=== PATIENT | female | born 1980 | race Caucasian/White ===

== ENCOUNTER 2018-04-16 12:57 | Inpatient (IN) | payer MEDICARE, MEDICAID ==
[2018-04-16] VITALS (17 sets, daily range): BP systolic 79–128; BP diastolic 39–103
[~2018-04-16] VITALS: Ht 162.6 cm; Wt 55.5 kg
[~2018-04-16 12:57] MED LIST: ATIVAN1 MG PO; DILANTIN100 MG; DILANTIN100 MG PO; DILANTIN30 MG PO; GABAPENTIN600 MG PO; KEPPRA 500 MG500 MG PO; LAMICTAL; LAMICTAL 25 MG25 M1 PO; LAMOTRIGINE100 MG; LAMOTRIGINE100 MG PO; MAG-OX 400 TAB400 M1 PO; NAMENDA; NAMENDA 5 MG TAB5 MG PO; NEURONTIN600 MG PO; NOHOMEMEDICATIONS; NORCO 5-325 TA1 EACH PO
[2018-04-16] MEDS ORDERED: KEPPRA1000 MG PO (13:16)
[2018-04-16] MEDS ORDERED: VIMPAT200 MG PO (13:17)
[2018-04-16] MEDS ORDERED: ZONEGRAN100 MG PO (13:17)
[2018-04-16] MEDS ORDERED: ROPINIROLE HCL0.5 MG PO (13:18)
[2018-04-16] MEDS ORDERED: ZANAFLEX2 MG PO (13:18)
[2018-04-16] MEDS ORDERED: LEXAPRO20 MG PO (13:18)
[2018-04-16] MEDS ORDERED: HYDROXYZINE HCL25 M1 PO (13:19)
[2018-04-16 13:23] LABS: URINE BILIRUBIN NEGATIVE (Negative); URINE BLOOD TRACE (Negative); URINE CLARITY CLEAR; URINE COLOR YELLOW; URINE GLUCOSE-RANDOM TRACE (Negative); URINE KETONES NEGATIVE (Negative); URINE LEUKOCYTES-REFLEX NEGATIVE (Negative); URINE NITRITE-REFLEX NEGATIVE (Negative); URINE PROTEIN TRACE (Negative); URINE SPECIFIC GRAVITY 1.015 (1.005-1.030)
[2018-04-16 13:31] LABS: AMP/METHAMP Negative (Negative); BARBITURATES Negative (Negative); BENZODIAZEPINES POSITIVE (Negative); COCAINE Negative (Negative); METHADONE Negative (Negative); OPIATES Negative (Negative); PCP Negative (Negative); THC POSITIVE (Negative)
[2018-04-16 13:34] LABS: ABSOLUTE LYMPHOCYTES 1.2 thou/uL (0.8-5.3); ABSOLUTE MONOCYTES 0.3 thou/uL (0.0-1.2); ABSOLUTE NEUTROPHILS 5.4 thou/uL (1.6-8.1); BASOPHILS 0.4 %; HEMATOCRIT 33.5 % (37.0-47.0); HEMOGLOBIN 11.1 gm/dL (12.0-15.0); LYMPHOCYTES 17.3 %; MCH 34.3 pg (26.0-34.0); MCHC 33.2 g/dL (28.0-37.0); MCV 103.1 fL (80.0-100.0); MONOCYTES 4.2 %; MPV 8.2 fl. (7.2-11.1); NUCLEATED RBCS 0 /100WBC; PLATELET COUNT* 238 thou/uL (150-400); POLYS 78.1 %; RBC 3.25 mil/uL (4.20-5.00); RDW-CV 13.1 % (10.5-14.5); WBC 6.9 thou/uL (4.0-11.0)
[2018-04-16 13:36] LABS: BE -14.2 mmol/L (-2 to +3); HCO3 13.9 mmol/L (22.0-26.0); PCO2 40.9 mmHg (35.0-45.0)
[2018-04-16 13:37] LABS: PO2 170.7 mmHg (75.0-100.0)
[2018-04-16 13:42] LABS: ANION GAP 12 mmol/L (7-16); APTT 26.8 Seconds (25.0-31.3); BUN 10 mg/dL (7-18); CHLORIDE 108 mmol/L (98-107); CO2 18 mmol/L (21-32); CREATININE 0.9 mg/dL (0.6-1.3); GLUCOSE 208 mg/dL (70-99); INR 1.2; SODIUM 138 mmol/L (136-145)
[2018-04-16 13:43] LABS: POTASSIUM 2.7 mmol/L (3.5-5.1)
[2018-04-16 14:00] LABS: ACETAMINOPHEN 3 ug/mL (10-30); SALICYLATE < 2.8 mg/dL (2.8-20.0)
[2018-04-16 14:01] LABS: ALCOHOL < 10 mg/dL (<10); ALKALINE PHOSPHATASE 61 U/L (46-116); CK-MB MASS 0.5 ng/mL (<0.5-3.6); LIPASE 67 U/L (73-393); NT-PRO BRAIN NAT PEPTIDE 28 pg/mL (<300); SGOT 14 U/L (15-37); SGPT 19 U/L (30-65); TOTAL BILIRUBIN 0.1 mg/dL (<0.1-1.0); TROPONIN-I LEVEL <0.06 ng/mL (<0.06)
--- NOTE | 2018-04-16 15:29 | NUR ---
1440 PATIENT ADMITTED TO ICU PER CART FROM CT WITH ER NURSE. PT ON VENTILATOR. SEE ADMISSION ASSESSMENT
--- NOTE | 2018-04-16 16:18 | NUR ---
SPOKE WITH DR KHAN. MOTLEY FOR ELECTROLYTE PROTOCOL.BMP REPEATED
[2018-04-16 16:24] LABS: CALCIUM 6.8 mg/dL (8.5-10.1); CREATININE 0.8 mg/dL (0.6-1.3)
[2018-04-16 16:25] LABS: BE -8.1 mmol/L (-2 to +3); HCO3 17.6 mmol/L (22.0-26.0); PCO2 36.7 mmHg (35.0-45.0); PO2 97.7 mmHg (75.0-100.0); pH 7.298 (7.340-7.450)
--- NOTE | 2018-04-16 17:59 | NUR ---
LACTATE NOW 2.4. FAMILY WENT HOME
--- NOTE | 2018-04-16 18:12 | NUR ---
PATIENT ADMITTED THIS AFTERNOONA OVERDOSE AND REPIRATORY FAILURE. ELECTROLYTE REPLACEMENT AND REWARMING IN PROGRESS. SPOKE WITH NEPHROLOGY AND PULMONARY. CONSULTS. LACTATE TRENDING DOWN. COMPLETING FLUID BOLUS. SPOUSE AND PARENTS HAVE VISITED.
[2018-04-17] VITALS (24 sets, daily range): BP systolic 86–106; BP diastolic 45–62
[2018-04-17 03:37] LABS: BE -4.3 mmol/L (-2 to +3); HCO3 21.2 mmol/L (22.0-26.0); PCO2 40.6 mmHg (35.0-45.0); pH 7.336 (7.340-7.450)
[2018-04-17 03:39] LABS: PO2 311.6 mmHg (75.0-100.0)
[2018-04-17 03:59] LABS: HEMOGLOBIN 9.5 gm/dL (12.0-15.0); MCH 34.7 pg (26.0-34.0); MCV 101.9 fL (80.0-100.0); MPV 8.2 fl. (7.2-11.1); RBC 2.75 mil/uL (4.20-5.00); WBC 7.8 thou/uL (4.0-11.0)
[2018-04-17 04:17] LABS: ALBUMIN 2.7 g/dL (3.4-5.0); CALCIUM 7.3 mg/dL (8.5-10.1); CREATININE 0.7 mg/dL (0.6-1.3); MAGNESIUM 1.5 mg/dL (1.8-2.4); POTASSIUM 3.4 mmol/L (3.5-5.1); TOTAL BILIRUBIN 0.3 mg/dL (<0.1-1.0); TOTAL PROTEIN 4.4 g/dL (6.4-8.2)
--- NOTE | 2018-04-17 05:47 | NUR ---
PT. PROGRESSING TOWARDS GOALS. VERSED GTT UP TO 7MG/HR. PT. VERY RESTLESS, CONSTANTLY ATTEMPTING TO PULL ET TUBE OUT. BILAT SOFT WRIST RESTRAINTS IN PLACE. FENTANYL GTT AT 50MCG/HR. REMAINS SINUS TACHY ON MONITOR. WILL CONTINUE TO MONITOR.
--- NOTE | 2018-04-17 08:21 | NUR ---
1154 ASSUMED CARE OF PATIENT. PLEASE SEE DOCUMENTED ASSESSMENT. PT ABLE TO NOD HEAD AND FOLLOW COMMANDS
--- NOTE | 2018-04-17 09:20 | NUR ---
DR SAUCEDO TO SEE ATIENT. WILL NOT TRIAL TODAY. INCREASING SEDATION
[2018-04-17 09:52] LABS: MAGNESIUM 2.6 mg/dL (1.8-2.4); POTASSIUM 3.3 mmol/L (3.5-5.1)
--- NOTE | 2018-04-17 10:20 | NUR ---
DR CHILEL TO SEE PATIENT AND TALK WITH SPOUSE
--- NOTE | 2018-04-17 12:39 | EKG ---
[place] [address] ELECTROCARDIOGRAM REPORT Name: CURT CALLAWAY Room: [address] ADM IN M.R.#: [id number] Admission: 04/16/18 Attend Phys: Ct Velasco MD Discharge: Date of : 76 Report #: [id number] THIS REPORT FOR: //name// [facility] ED Test Date: 2018-04-16 Test Time: 13:01:16 Pat Name: CURT CALLAWAY Department: Room: [facility] Gender: F [place]: [place] : 1980 Requested By: Mateus Alexandre Order Number: [id number] MD: Danyel Wilson Measurements Intervals [place] Rate: 115 P: 70 ID: [id number] QRS: 35 QRSD: 95 T: -67 QT: 335 QTc: 464 Interpretive Statements Sinus tachycardia Probable left atrial enlargement RSR' in V1 or V2, right VCD or RVH No previous ECG available for comparison Electronically Signed On 04-17-2018 12:39:35 CDT by Danyel Wilson [email or web address] <ELECTRONICALLY SIGNED> By: Danyel Wilson MD, [facility] 04/17/18 1239 1301 1301 Danyel Wilson MD, [facility] /EPI
[2018-04-17 13:47] LABS: ALBUMIN 2.6 g/dL (3.4-5.0); CALCIUM 7.5 mg/dL (8.5-10.1); CREATININE 0.6 mg/dL (0.6-1.3); PHOSPHORUS* 1.8 mg/dL (2.5-4.9); POTASSIUM 3.3 mmol/L (3.5-5.1)
--- NOTE | 2018-04-17 17:05 | NUR ---
PATIENT MAKING PROGRESS TOWARDS GOALS. INTACT NEUROLOGICALLY CHARTED. VENT WEANING TRIAL IS ORDERED FOR AM. COMFORT MAINTAINED WITH FENTANYL AND VERSED DRIPS. VSS. SPOUSE AND MOTHER HAVE VISITED
[2018-04-18] VITALS (48 sets, daily range): BP systolic 87–112; BP diastolic 43–71
[2018-04-18 03:00] LABS: HEMATOCRIT 25.5 % (37.0-47.0); HEMOGLOBIN 8.6 gm/dL (12.0-15.0); MCH 34.5 pg (26.0-34.0); MCHC 33.6 g/dL (28.0-37.0); MCV 102.6 fL (80.0-100.0); MPV 7.9 fl. (7.2-11.1); RBC 2.48 mil/uL (4.20-5.00); RDW-CV 13.8 % (10.5-14.5); WBC 5.7 thou/uL (4.0-11.0)
[2018-04-18 03:48] LABS: ALBUMIN 2.3 g/dL (3.4-5.0); CALCIUM 7.2 mg/dL (8.5-10.1); CREATININE 0.6 mg/dL (0.6-1.3); POTASSIUM 3.7 mmol/L (3.5-5.1); TOTAL BILIRUBIN 0.4 mg/dL (<0.1-1.0); TOTAL PROTEIN 4.2 g/dL (6.4-8.2)
--- NOTE | 2018-04-18 05:18 | NUR ---
PROGRESSING TOWARD GOALS. PT IS ALERT AND FOLLOWS COMMANDS, ABLE TO NOD/SHAKE HEAD IN RESPONSE TO YES/NO QUESTIONS. TITRATING SEDATION DOWN IN PREPARATION FOR WEANING TRIAL AT 0800. PT HAS BEEN TURNED Q2HR THROUGHOUT THE SHIFT.
[2018-04-18 08:24] LABS: BE -9.3 mmol/L (-2 to +3); HCO3 16.6 mmol/L (22.0-26.0); PCO2 35.9 mmHg (35.0-45.0); PO2 98.2 mmHg (75.0-100.0); pH 7.282 (7.340-7.450)
[2018-04-18 08:37] LABS: URINE BILIRUBIN NEGATIVE (Negative); URINE BLOOD TRACE (Negative); URINE CLARITY CLEAR; URINE COLOR YELLOW; URINE GLUCOSE-RANDOM NEGATIVE (Negative); URINE KETONES NEGATIVE (Negative); URINE LEUKOCYTES-REFLEX NEGATIVE (Negative); URINE NITRITE-REFLEX NEGATIVE (Negative); URINE PROTEIN NEGATIVE (Negative)
--- NOTE | 2018-04-18 09:30 | NUR ---
PT EXTUBATED AT 0930.
--- NOTE | 2018-04-18 10:49 | NUR ---
Nutrition: Consult received for "NPO." Per ICU rounds, pt in for SI, OD. Pt now extubated. Awaiting ST eval - expect pt to be able to eat well, and diet will be advanced. Albumin 2.3, prealb 15, BG WNL. Has sitter. GOAL: diet advancement today to Regular. Low nutrition risk.
--- NOTE | 2018-04-18 11:05 | NUR ---
SPOUSE BROUGHT MEDICATION BOTTLES PT TOOK. 1 BOTTLE ROPINIROLE HCL 1MG (TO TAKE FOR 7 DAYS) 60 TOTAL TABS. BOTTLE EMPTY 1 BOTTLE FOLIC ACID 1 MG TOTAL 30 TABS. BOTTLE EMPTY 1 BOTTLE VIMPAT 200 MG 60 TABS. BOTTLE EMPTY 1 BOTTLE PAROXETINE HCL 20 MG 30 TABS. BOTTLE EMPTY 1 BOTTLE LISINOPRIL 10MG . 30 TABS. BOTTLE EMPTY. SCRIPT IF FOR CLINTON CRUZ.
--- NOTE | 2018-04-18 11:07 | CON ---
[address] [address] CONSULTATION Name: CURT CALLAWAY Room: [address] IN M.R.#: [id number] Admission: 04/16/18 Attend Phys: Ct Velasco MD Discharge: Date of : 76 Report #: [id number] THIS REPORT FOR: //name// CC: Ronaldo Velasco REASON FOR CONSULTATION: Respiratory failure. HISTORY OF PRESENT ILLNESS: The patient was intubated during my evaluation, did not participate in the history. I did review her medical records and discussed with the and RN at the bedside. This is a 38-year-old female patient brought in by EMS for a drug overdose. Around midnight 12:30, the EMS were at the scene. She had left a suicidal note and she took pills that belonged to her and to her . It was mentioned she took paroxetine, ropinirole, citalopram, lisinopril, and folic acid and when EMS arrived, she was seizing. Apparently, she seized for 6 minutes to 7 minutes. She was given Versed by EMS and given Narcan. She was unresponsive. She has history of overdose in the past. She has history of seizures, on multiple medications. When I saw the patient, she was intubated on sedation, although she opened her eyes and she followed some commands, but she drifted back to sleep. Please note, she was on sedation on Versed and fentanyl. It was noted that she has significant metabolic acidosis upon arrival requiring bicarbonate drip that was taken off this morning. Some secretions also reported per RN in the ET tube. There is a question of aspiration episodes during this whole process. PAST MEDICAL HISTORY: Includes seizure disorder, epilepsy, and history of cervical cancer. PAST SURGICAL HISTORY: Hysterectomy. HOME MEDICATIONS: She is on Keppra, Vimpat, ropinirole, hydroxyzine, Zanaflex. ALLERGIES: No known drug allergies. SOCIAL HISTORY: Unobtainable. FAMILY HISTORY: Noncontributory. REVIEW OF SYSTEMS: Unobtainable. PHYSICAL EXAMINATION: VITAL SIGNS: On examination, her blood pressure is borderline at 93/53. She is not on vasopressors, breathing with the vent 16 times a minute, temperature 37.1. O2 saturation on the monitor 100%. GENERAL: Lying in bed, arousable, [place] [address] CONSULTATION Name: CURT CALLAWAY Sandi Room: [address]#: [id number] Admission: 04/16/18 Attend Phys: Ct Velasco MD Discharge: Date of : 76 Report #: [id number] HEAD: Normocephalic, atraumatic. EYES: Pupils reactive to light. Not pale, not jaundiced. HENT: External ears look healthy and normal. ET tube in place. Moist mucous membranes. NECK: Supple. No palpable lymph nodes. No palpable thyroid. Trachea is central. CHEST: Air movement heard bilaterally. No added sounds. No wheezing, no crackles. HEART: S1, S2, no murmur. ABDOMEN: Benign, soft, lax, nontender. EXTREMITIES: Lower extremity: No edema, no rash. SKIN: No rash. PSYCHIATRIC: Mood and affect could not be evaluated. NEUROLOGIC: She is on sedation, but opens her eyes, follow commands briefly, drifts back to sleep. Moving 4 extremities were noted. LYMPHATICS: No palpable lymph node. LABORATORY DATA: Her chest x-ray did not show acute pathology. Her repeat chest x-ray demonstrated ET tube in acceptable position. Her ABGs reviewed earlier, she has significant metabolic acidosis. The last ABG this morning 7.33/ /311, this was done on 60% FiO2. Since then, the FIO2 was decreased. Her creatinine is 0.7, her BUN is 5 this morning. Her chloride is 108. Her bicarbonate initially was 18, this morning it was 26. Urine drug screen is positive for benzo and marijuana. Her INR is 1.2. IMPRESSION: 1. Acute respiratory failure. 2. Encephalopathy. 3. Drug overdose. 4. Suicidal attempt. 5. History of seizure disorder. 6. Seizure episodes. 7. Metabolic acidosis. 8. . The patient's clinical status is slowly improving. Her metabolic acidosis is actually improving, bicarb drip had been stopped. She took significant number of multiple medications, although her mental status is better, but I would like to keep her on the vent for another 24 hours to monitor her for any further seizure activity and to avoid any further worsening mental status. If she continues to improve and the metabolic acidosis improves and stabilizes ABGs, then we will consider weaning trial in the morning. It was noted that she is on antibiotics for possible sepsis and aspiration episode. We will do a chest x-ray in the morning. She will be on nebulization treatment. Once she is medically stable, we will consider weaning trial. Discussed with the patient and RN. [address] [address] CONSULTATION Name: CURT CALLAWAY Room: [address] IN M.R.#: [id number] Admission: 04/16/18 Attend Phys: Ct Velasco MD Discharge: Date of : 76 Report #: [id number] Thank you for the consult. Continue current plan of sedation. Awaiting input from Neurology service. <ELECTRONICALLY SIGNED> By: Stevie Ahmadi MD 04/18/18 1107 0927 1448Hamilton Gutierrez MD /nt
[2018-04-18 12:26] LABS: BE -10.9 mmol/L (-2 to +3); PCO2 28.4 mmHg (35.0-45.0); PO2 101.1 mmHg (75.0-100.0); pH 7.311 (7.340-7.450)
--- NOTE | 2018-04-18 13:21 | NUR ---
PT HAD SEIZURE FROM 1150 - 1152. THEN HAD A BREAK FOR 1 MINUTE THEN HAD ANOTHER SEIZURE FROM 9349-2800. PT UNABLE TO SPEAK. PT GRIMACING. PT HANDS TREMBLING. PT UNABLE TO SPEAK. PT ATTEMPTING TO GET OUT OF BED. PT DESATTED TO 78% 4L O2 PLACED ON PT. HR WENT TO 140. RESPIRATIONS WENT FROM [address] HUTSON. ER DR CAME OVER. RECEIVED ORDER FOR 1 TIME ATIVAN, ABGS AND ADDITIONAL ORDERS. WHEN SEIZURE STOPPED. PT ABLE TO SPEAK AND STATE NAME AND LOCATION. PT STARTED ON IV KEPPRA. DR REILLY SPOKE TO DR BOWERS ABOUT ORDERS. WILL CONTINUE TO MONITOR.
--- NOTE | 2018-04-18 15:50 | EKG ---
[place] [address] ELECTROCARDIOGRAM REPORT Name: CURT CALLAWAY Room: [address] ADM IN M.R.#: [id number] Admission: 04/16/18 Attend Phys: Ct Velasco MD Discharge: Date of : 76 Report #: [id number] THIS REPORT FOR: //name// [facility] Test Date: 2018-04-18 Test Time: 12:45:24 Pat Name: CURT CALLAWAY Department: Room: [address] Gender: F [employer] History Teacher: RIKY : 1980 Requested By: Eliana Hackett Order Number: [id number] Patricio MD: Francisco Javier Mccarthy Measurements Intervals [place] Rate: 132 P: 65 RI: 131 QRS: 60 QRSD: 85 T: -33 QT: 300 QTc: 445 Interpretive Statements Sinus tachycardia Borderline T abnormalities, inferior leads Compared to ECG 04/16/2018 13:01:16 no change Electronically Signed On 04-18-2018 15:50:42 CDT by Francisco Javier Mccarthy [email or web address] <ELECTRONICALLY SIGNED> By: Francisco Javier Mccarthy MD, [facility] 04/18/18 1550 1245 1245 Francisco Javier Mccarthy MD, [facility] /EPI
--- NOTE | 2018-04-18 16:02 | NUR ---
Received request from physician to arrange transfer to [facility]. Called [facility] transfer team and spoke with Davey. Faxed face sheet. Will await return call re: bed availability and acceptance. [facility] [phone]; fax [phone]
--- NOTE | 2018-04-18 17:09 | NUR ---
PT HAD SEIZURE FROM [id number]. PRN ATIVAN GIVEN. PT ALERT AND ABLE TO COMMUNICATE WHEN SEIZURE COMPLETE. NEUROLOGY NOTIFIED. SEIZURE MEDICATIONS ADMININSTERED PER NEURO. AFTER THIS SEIZURE PT STATES "I DON'T WANT THESE ANYMORE. MAYBE I AM BEING SELFISH, BUT I DON'T WANT MY KIDS TO HAVE TO SEE THIS. I CAN'T DO THINGS I USE TO DO".
--- NOTE | 2018-04-18 17:15 | NUR ---
ICE PACKS APPLIED FOR FEVER. FEVER CURRENTLY 1OO.6. ID CONSULT PLACED FOR ASIPRATION PNA AND FEVER.
--- NOTE | 2018-04-18 21:16 | NUR ---
PT REQUESTED HOME REQUIP DOSE DUE TO INCREASING RLS SYMPTOMS, CALL PLACED TO DR BOSE AND ORDERS RECEIVED.
[2018-04-19] VITALS (16 sets, daily range): BP systolic 100–119; BP diastolic 60–68
--- NOTE | 2018-04-19 01:43 | NUR ---
N/V X1, THICK GREEN BLOOD TINGED EMESIS. PRN ZOFRAN GIVEN. PT C/O HEADACHE SINCE RT ADMINISTERED BREATHING TREATMENT, "IT SMELLED REALLY BAD AND I COULDN'T FINISH IT. I'VE HAD A HEADACHE EVER SINCE." PRN IBUPROFEN GIVEN AFTER ZOFRAN DECREASED NAUSEA. PT PROVIDED WITH TOOTHBRUSH/PASTE, ORAL CARE DONE INDEPENDENTLY.
[2018-04-19 03:45] LABS: HEMATOCRIT 26.8 % (37.0-47.0); HEMOGLOBIN 9.1 gm/dL (12.0-15.0); MCH 34.7 pg (26.0-34.0); MCHC 33.8 g/dL (28.0-37.0); MCV 102.8 fL (80.0-100.0); MPV 8.4 fl. (7.2-11.1); RBC 2.61 mil/uL (4.20-5.00); RDW-CV 13.3 % (10.5-14.5); WBC 6.5 thou/uL (4.0-11.0)
[2018-04-19 03:54] LABS: ALBUMIN 2.4 g/dL (3.4-5.0); CALCIUM 7.5 mg/dL (8.5-10.1); CREATININE 0.6 mg/dL (0.6-1.3); MAGNESIUM 1.6 mg/dL (1.8-2.4); POTASSIUM 3.7 mmol/L (3.5-5.1); TOTAL BILIRUBIN 0.6 mg/dL (<0.1-1.0); TOTAL PROTEIN 4.8 g/dL (6.4-8.2)
[2018-04-19 05:39] LABS: PCO2 26.9 mmHg (35.0-45.0); PO2 86.8 mmHg (75.0-100.0); pH 7.301 (7.340-7.450)
--- NOTE | 2018-04-19 05:57 | NUR ---
EMESIS X3 TONIGHT, TREATED WITH ZOFRAN PRN ORDERED. NO SEIZURE ACTIVITY. CALL RECEIVED FROM DR BOSE TO CHECK ON PT, STATES HE WILL BE IN TO SEE HER THIS EVENING. VSS, O2 SAT >92% ON RA. 1:1 SITTER AT BEDSIDE AT ALL TIMES. CALL LIGHT WITHIN REACH.
--- NOTE | 2018-04-19 11:30 | NUR ---
RECEIVED REPORT FROM NIGHT RN. ASSESSMENT CHARTED. AFEBRILE. C/O SOME NAUSEA. SITTER WITH PT. TELE CONSULT TODAY. PT TELE STATUS. MEDS GIVEN. NO SEIZURES TODAY. PT TRANSFERRED TO 224 AROUND 1000. WILL CONTINUE TO MONITOR.
--- NOTE | 2018-04-19 19:07 | NUR ---
PT HAD PSYCH CONSULT WITH TELEPSYCH AND WAS RECOMMENDED TO ADMIT FACILITY.
[2018-04-20] VITALS: BP 101/61
[2018-04-20 02:14] LABS: HEMATOCRIT 27.4 % (37.0-47.0); HEMOGLOBIN 9.2 gm/dL (12.0-15.0); MCH 34.6 pg (26.0-34.0); MCHC 33.7 g/dL (28.0-37.0); MCV 102.6 fL (80.0-100.0); MPV 8.4 fl. (7.2-11.1); RBC 2.67 mil/uL (4.20-5.00); RDW-CV 13.6 % (10.5-14.5); WBC 4.3 thou/uL (4.0-11.0)
[2018-04-20 03:04] LABS: ALBUMIN 2.6 g/dL (3.4-5.0); CALCIUM 7.5 mg/dL (8.5-10.1); CREATININE 0.6 mg/dL (0.6-1.3); MAGNESIUM 1.7 mg/dL (1.8-2.4); POTASSIUM 3.5 mmol/L (3.5-5.1); TOTAL BILIRUBIN 0.3 mg/dL (<0.1-1.0)
[2018-04-20 04:00] VITALS: BP 98/62
--- NOTE | 2018-04-20 07:26 | NUR ---
ASSUMED CARE AT 1999, REPORT RECEIVED FROM HENRY BUTLER. PATIENT ALERT/ORIENTED X4, FORGETFUL AT TIMES, RESTING IN BED WITH EYES CLOSED. PATIENT SLOW TO ANSWER QUESTIONS AND HAVING TROUBLE FINDING HER WORDS AT TIMES. ON TELE, SR/ST. ON ROOM AIR, NO SOB NOTED, SATS 99%. RIGHT IJ NOTED, IVF INFUSING PER MAR. UP WITH ASSIST. ROBERTSON TO DD. STATES HAVING PAIN TO HEAD, MEDS PER MAR WITH RELIEF NOTED. BED ALARM ON. 1:1 AT SIDE. DENIES NAUSEA. REFUSING SCD'S. SMALL METAL BRACELET TO LEFT WRIST REMOVED AND SENT TO SECURITY. SEIZURE PRECAUTIONS INITIATED, RAILS PADDED X4 AND OXYGEN PLACED AT SIDE. DENIES SI/HI AT THIS TIME. DR. BOWERS NOTIFIED REGARDING BEHAVIOR/DELAYED RESPONSES, NO NEW ORDERS RECEIVED. BED ALARM ON. CALL LIGHT WITHIN REACH, ENCOURAGED TO CALL FOR NEEDS. 0700: PATIENT HAD ONE EPISODE OF YELLOWISH LIQUID EMESIS OUT, ZOFRAN GIVEN WITH RELIEF NOTED. DR. BOWERS NOTIFIED THIS MORNING AND UPDATED ON PATIENT STATUS THROUGH THE NIGHT, ORDERS RECEIVED. REPORT GIVEN TO ONCOMING NURSE. UPDATED PATIENT ON PLAN OF CARE AND BEING NPO, STATES UNDERSTANDING. WILL MONITOR.
--- NOTE | 2018-04-20 07:33 | NUR ---
NO SEIZURE ACTIVITY NOTED THROUGH THE NIGHT.
[2018-04-20 08:00] VITALS: BP 117/75
[2018-04-20 12:00] VITALS: BP 120/82
[2018-04-20 13:16] LABS: MAGNESIUM 1.8 mg/dL (1.8-2.4); POTASSIUM 3.6 mmol/L (3.5-5.1)
[2018-04-20 16:15] VITALS: BP 123/87
--- NOTE | 2018-04-20 16:25 | NUR ---
ASSUMED CARE OF PT AROUND 0730 THIS AM. REFER TO ASSESSMENT. PT CONTINUES ON 1:1 SI OBSERVATION. PT CONTINUES TO C/O NAUSEA. CT ABDOMEN TODAY. REFER TO RESULTS. ELECTROLYTES REPLACED THIS SHIFT. TPN STARTED TODAY. MARCELO CUEVAS TODAY. PT UP TO CHAIR AT BEDSIDE FOR MEALS. POOR APPETITE. DIET NOT ADVANCED FROM CLEAR LIQUIDS THIS SHIFT. WCTM.
--- NOTE | 2018-04-20 18:14 | NUR ---
I have reviewed the documentation by [facility]ICO ESTRADA OTR LIMITED PERMIT from 04/20/18 to 04/20/18 and I concur with it. YVONNE LOCKWOOD
[2018-04-20 20:46] VITALS: BP 115/73
[2018-04-21] VITALS: BP 118/76
[2018-04-21 04:00] VITALS: BP 102/65
--- NOTE | 2018-04-21 04:37 | NUR ---
pt currently resting in bed. service captain 1:1 at bedside. pt continues with PPN for nutrition. pt on RA. Pt SR on monitor. pt has had no n/v throughout shift. continues on seizure precautions without any activity of. am labs to be drawn and reviewed.
[2018-04-21 08:00] VITALS: BP 105/70
--- NOTE | 2018-04-21 09:56 | NUR ---
ASSUMED CARE OF PT THIS AM AROUND 0715- APPLICATION DEVELOPMENT INTERN IN PLACE ORDERED, TRACING SR THIS AM- UPON ASSESSMENT PT NOTED TO BE RESTING IN BED, SITTER AT SIDE INDICATED R/T SI- PT A&O X4- CONTINENT OF BOWEL AND BLADDER- SBA WITH TRANSFERS FOR SAFETY- VSS, O2 SAT 97% ON RA- LCTA, RESP EVEN AND UN-LABORED- ABDOMEN SOFT/ROUND/NON-TENDER, BS X4 QUADS- PT REPORTED TO HAVE HAD BM OVER NIGHT X4- RIGHT TRIPLE LUMEN IJ NOTED INTACT- IVF, ZOYSN, AND PPN D/C'D THIS AM PER - CHEST X-RAY COMPLETED THIS AM, NEGATIVE FOR ANY ABN-PT REPORTS PAIN TO HEAD 03/29 THIS AM, PRN TYLENOL GIVEN AT 0916- PT REPORTS MEDICATION TO BE EFFECTIVE- CALL LIGHT AND PERSONAL BELONGINGS WITH IN REACH- ALL NEEDS MET AT THIS TIME-WCTM
--- NOTE | 2018-04-21 12:48 | NUR ---
ORDERS RECIVED FOR TELE MONITOR TO BE D/C'D WITH PT TO BE DOWN GRADED TO MS STATUS- RIGHT IJ SL, DRESSING INTACT- SITTER AT SIDE AND CONTINUED INDICATED R/T SI- PT TO BE TRANSFERED TO ROOM 116 R/T MS STATUS- REPORT CALLED TO HENRY LU WHOM IS TO ASSUME CARE AT 1243; ALL QUESTIONS AND CONCERNS ADDRESSED AT THIS TIME- BELONGINGS BEING PACKED AT THIS TIME, PT TO TRANSFER SOON- ALL NEEDS MET AT THIS TIME-WCTM
--- NOTE | 2018-04-21 13:57 | NUR ---
PATIENT ARRIVED ON UNIT FROM TELE AT 1300. COMPLETED REASSESSMENT. IV CLEAN, FLUSHING, INTACT. PATIENT TOLERATED DIET, NO NAUSEA AND VOMITING. ORIENTED PATIENT TO ROOM. CALL LIGHT WITHIN REACH. WILL CONTINUE TO MONITOR.
--- NOTE | 2018-04-21 15:13 | NUR ---
MET WITH PT TO DISCUSS HOME SITUATION/DC RECOMMENDATION. PT TRANSFERRED TO M/S TODAY. PT STATES SHE LIVES WITH HER AND 4 CHILDREN. PT ADMITTED WITH OVERDOSE AND SEIZURE, STATES SHE OVERDOSED ON PILLS AND HER 2 SONS FOUND HER. PT STATES HER FAMILY HAS BEEN SUPPORTIVE, ' MUCH THEY CAN BE'. SHE HAS SEIZURE DISORDER SINCE [address]. SHE HAS HAD A PREVIOUS SUICIDE ATTEMPT IN SEP AND WENT TO [facility] FOR ABOUT A WEEK. PT STATED IT WAS NOT A POSITIVE EXPERIENCE 'EVERYONE THERE WAS YOUNGER AND COULDN'T RELATE.' PT HAS PCP AND PSYCH AT [facility] BUT CANNOT REMEMBER NAMES OF THE DRS. EXPLAINED TO HER THAT SHE WOULD PROBABLY BE READY FOR DC TOMORROW AND THAT THE RECOMMENDATION WAS FOR INPT PSYCH. SHE BECAME SOMEWHAT AGGITATED AND REPORTS SHE WANTS TO GO HOME AND SEE HER SONS AND APOLOGIZE TO THEM. DISCUSSED SEVERITY OF HER ACT AND THAT THE RECOMMENDATION WAS INPT. SHE WANTED TO KNOW HOW 'CAN SOMEONE CAN FORCE ME TO GO.' REASSURED HER THAT SAFETY WAS THE CONCERN AND THAT DR AND CM WOULD DISCUSS IT AGAIN WITH HER TOMORROW. ASSURED HER THERE ARE SEVERAL OTHER FACILITIES IN THE AREA THAT COULD BE CHECKED FOR ADMISSION OTHER THAN [facility]. CM TO FOLLOW
[2018-04-21 19:35] VITALS: BP 109/70
--- NOTE | 2018-04-21 21:34 | CON ---
[address] [address] CONSULTATION Name: CURT SILVA Room: [address] IN M.R.#: [id number] Admission: 04/16/18 Attend Phys: Ct Velasco MD Discharge: Date of : 76 Report #: [id number] THIS REPORT FOR: //name// CC: Ronaldo Velasco DATE OF SERVICE: 04/18/2018 CONSULTATION: Infectious diseases. Ms Silva is a 38-year-old white female who comes to the hospital after being found down surrounded by a number of pill bottles and a suicide note. The patient has a history of very complex seizure disorder and did have a witnessed seizure for approximately 7 minutes. In the ER, the patient was given sedatives and intubated. She developed a temperature up to 102. She had a number of metabolic abnormalities, which were corrected. The patient was extubated earlier this evening. Infectious disease consultation was requested because of the fever. The patient has a past history, which includes depression, hypertension and seizure. The patient has a history of cancer of the cervix and this has been treated with hysterectomy. The patient has a vagal nerve stimulator for seizure control, which apparently was unsuccessful and is currently turned off. MEDICATION RECONCILIATION: The patient's current medication list includes levetiracetam 2000 mg b.i.d., ropinirole 1.5 mg at bedtime, lacosamide 200 mg b.i.d., carbamazepine 200 mg b.i.d., Zofran 4 mg IV q.4h. p.r.n., ibuprofen 600 mg p.o. q.6h. p.r.n., lorazepam 2 mg q. 3 IV p.r.n., enoxaparin 40 mg subcutaneously at bedtime, ipratropium and albuterol inhalation 3 mL q.4h., Zosyn 3.375 g IV every 8 hours, pantoprazole 40 mg IV b.i.d., phosphorus 2 packets t.i.d., sodium chloride with sodium phosphate, magnesium supplements, potassium supplements. ALLERGIES: I have no history of drug allergies. FAMILY HISTORY: Noncontributory. SOCIAL HISTORY: The patient is . She reports that she quit smoking 2 weeks ago. She does smoke marijuana on a regular basis. She is disabled by her mental health and seizure condition. REVIEW OF SYSTEMS: Somewhat limited as the patient was not particularly talkative. She did say that she had headache and her hips hurt. The patient is not complaining of any dyspnea. She does have cough and congestion. She denies chest pain. The patient denies nausea, vomiting, diarrhea, constipation[place] [address] CONSULTATION Name: CURT SILVA Room: [address] IN M.R.#: [id number] Admission: 04/16/18 Attend Phys: Ct Velasco MD Discharge: Date of : 76 Report #: [id number] PHYSICAL EXAMINATION: GENERAL: The patient appears to be her stated age, somewhat depressed in affect, very weak and tired, but not in any distress. VITAL SIGNS: Show maximum temperature is 102. The patient had a low fever at the time of my examination measuring 100.4, blood pressure 112/58, oxygen saturation was 98% on room air. SKIN: Showed no rash, lesion or exanthem. ENT: Negative. HEART: Heart sounds normal. LUNGS: Clear. ABDOMEN: Belly thin, soft, not tender. EXTREMITIES: Unremarkable. LABORATORY DATA: White count was 5.7. The hemoglobin had gone from 11.1-8.6 with hydration. Platelets were 162,000. Electrolytes were normal. BUN 2, creatinine 0.6, glucose 91. The blood gas initially was pH 7.15, pCO2 of 41, pO2 of 171 on 80% oxygen with a ventilator. This morning on 3 liters, the pH was 7.31, pCO2 of 28, pO2 101. test is negative. Lactate is normal. Urinalysis is negative. CT of the head is negative. Chest x-ray is negative. Blood cultures x 4 negative including two that are 48 hours old. ASSESSMENT AND PLAN: In summary, the patient who overdosed on smorgasbord of medications, the patient required intubation, mechanical ventilation and then developed fever. The fever could be a drug reaction because of the multiple high dose medications. This could be reaction to the prolonged seizure, which was witnessed. This generates a lot of muscle heat. The patient certainly is at risk for aspiration with a prolonged seizure followed by intubation. There is no other obvious source of sepsis. At this point, we will continue the patient on Zosyn pending results of the cultures. I would like to do a followup chest x-ray and CBC. If the patient becomes more awake and alert, we may be able to get a more cogent history. We want to discuss tobacco cessation, although this may be difficult for the patient in light of all of her other problems. For now, we will continue supportive therapy and antibiotics. <ELECTRONICALLY SIGNED> By: Mann Jarrell MD 04/21/18 2134 2217 0209John Henry Jarrell MD /claudio
--- NOTE | 2018-04-22 04:53 | NUR ---
PATIENT REMAINS ALERT AND ORIENTED X4 THROUGHOUT SHIFT. VITAL SIGNS STABLE ON ROOM AIR. TRIPLE RIGHT TRIPLE LUMEN IJ IN PLACE AND PATENT. TOLERATED DIET THROUGHOUT NIGHT. TRANSFERS WITH STANDBY ASSIST TO THE RESTROOM. PATIENT REMAINS IN 1:1 OBSERVATION. DENIES PAIN OR NAUSEA. REPOSITIONING SELF IN BED. RESTING COMFORTABLY THROUGHOUT NIGHT. HOURLY ROUNDING COMPLETE. NURSING WILL CONTINUE TO MONITOR.
[2018-04-22 04:57] LABS: CALCIUM 8.2 mg/dL (8.5-10.1); CREATININE 0.6 mg/dL (0.6-1.3); POTASSIUM 3.3 mmol/L (3.5-5.1)
[2018-04-22 08:00] VITALS: BP 116/74
[2018-04-22 11:39] VITALS: BP 116/74
[2018-04-22] MEDS ORDERED: IBUPROFEN 600600 M1 PO (11:47)
[2018-04-22] MEDS ORDERED: ZONEGRAN100 MG PO (11:49)
[2018-04-22] MEDS ORDERED: TYLENOL325 MG PO (11:50)
[2018-04-22] MEDS ORDERED: REQUIP1 MG PO (11:52)
[2018-04-22] MEDS ORDERED: TEGRETOL200 MG PO (11:53)
[2018-04-22] MEDS ORDERED: SCOPOLAMINE1 EACH TRANSDERM (11:54)
[2018-04-22] MEDS ORDERED: ONDANSETRON HCL4 M2 PO (11:55)
--- NOTE | 2018-04-22 12:01 | NUR ---
NOTIFIED OF DISCHARGE ORDERS TO INPT.PSYCH BY NURSING. FAXED REFERRALS TO [facility]. SPOKE WITH INTAKE AT [facility]. THEY DID NOT ANSWER PHONE X2. DISCUSSED WITH PT.AND AT BEDSIDE. PT.AGREEABLE AT THIS TIME. STATED I JUST WANT TO GET THIS GOING. MADE NO COMMENTS. SEEMS UPSET/MAD AT PT.
--- NOTE | 2018-04-22 14:00 | NUR ---
[facility] AND SAID THEY CAN ACCEPT PT.PENDING NURSIN REPORT . DR.BRIAN MA ACCEPTING. [facility] TO CALL REPORT TO [facility] RN [phone]. ASKED HER TO DO RIGHT AWAY IN CASE THERE IS SOMETHING THEY CANNOT ACCEPT HER FOR. HAD TO LEAVE. BROUGHT CLOTHES FOR HER TO WEAR THAT ARE PSYCH SAFE. [facility]IC[facility] WILL CALL AND LET HIM KNOW TIME OF TRANSFER. CHART COPIED TO GO WITH PT.COPY OF COBRA FORM TO GO WITH PT. SECURITY CALLED FOR VALUABLES. ONE BRACELET RECEIVED. NURSING PUT IN CHART COPY ENVELOPE AND WILL TELL EMS. ARRANGED AMBULANCE FOR 1530. PT.INFORMED.
--- NOTE | 2018-04-22 15:49 | NUR ---
ASSUMED CARE OF PATIENT AFTER MORNING REPORT AROUND 0720. ALERT AND ORIENTED X4. ASSESSMENT COMPLETED AND CHARTED. VSS ON ROOM AIR. NO COMPLAINTS OF PAIN, NAUSEA, OR SOA. PATIENT WATCHED TV THROUGHOUT THE DAY, PLEASANT AND CHEERFUL WITH NURSING STAFF. DID HAVE COMPLAINT OF HEADACHE THIS AFTERNOON, ASKED FOR IBURPOFEN WHICH RELIEVED HER PAIN. SITTER IN PLACE THROUGHOUT SHIFT, SI PRECAUTIONS AND ROUNDS MAINTAINED. FACILITY APPROVAL OBTAINED AND PATIENT TRANSFERRED OUT VIA EMS/AMBULANCE AT 1545. ALL PERSONAL BELONGINGS AND PAPERWORK SENT WITH EMS TO FACILITY.
--- NOTE | 2018-04-22 16:02 | NUR ---
I have reviewed the documentation by CHICO ESTRADA from 04/22/18 to 04/22/18 and I concur with it. FABIÁN, YVONNE
--- NOTE | 2018-04-25 08:35 | EEG ---
[address] [address] EEG STUDY REPORT Name: CURT CALLAWAY Sandi Room: [address] IN M.R.#: [id number] Admission: 04/16/18 Attend Phys: Ct Velasco MD Discharge: 04/22/18 Date of : 76 Report #: [id number] THIS REPORT FOR: //name// CC: Ronaldo Velasco DATE OF SERVICE: 04/19/2018 This patient is being evaluated for the possibility of seizure. This EEG is for comparison with the first and the second EEG. The patient still has some alteration in mentation, but has not had any roberto seizure. Her EEG was done by placing the electrode by standard 10-20 system of electrode placement. Both referential and sequential montages were used for recording. Background activity does go about 7-8 Hz. The patient went to sleep that is associated with bilateral slowing and vertex sharp waves. Photic stimulation was unremarkable. The patient did have some epileptiform activity, which is arising from the left temporal area, but has much diminished than the initial EEG the patient had. IMPRESSION: This is an abnormal EEG because it is disorganized and poorly formed. That is a nonspecific finding, which can occur with encephalopathy, effects of psychotropic medications, dementia, etc. The patient still has some residual epileptiform activity, but that is much diminished than original study. I have talked to her epileptologist and he indicated that this patient has some epileptiform activity, even in her baselines EEG. Thank you very much for this referral. <ELECTRONICALLY SIGNED> By: Marcello Pablo MD 04/25/18 0835 1829 1917Marcello Pablo MD /nt
--- NOTE | 2018-04-25 08:35 | EEG ---
[address] [address] EEG STUDY REPORT Name: CURT CALLAWAY Sandi Room: [address] IN M.R.#: [id number] Admission: 04/16/18 Attend Phys: Ct Velasco MD Discharge: 04/22/18 Date of : 76 Report #: [id number] THIS REPORT FOR: //name// CC: Ronaldo Velasco DATE OF SERVICE: 04/18/2018 This patient had an EEG earlier today. She continued to have multiple symptoms after that. It is not certain if they were seizure or nonepileptiform event. We do not have a facility to do a video monitor EEG or a prolonged EEG. We tried to transfer her, but could not and the patient did not want to go to another hospital anywhere. Because of that, a repeat EEG was done on the same day to see if more epileptiform activity is going on. EEG was done by placing the electrodes by standard 10-20 system of electrode placement. Both referential and sequential montages were used for recording. Background activity in this patient's EEG is about 8 Hz and 40 microvolts. It still shows some epileptiform activity, especially from the left temporal area, but the activity actually is markedly diminished. Photic stimulation is unremarkable. IMPRESSION: Significant improvement in the patient's epileptiform activity. This is in spite of the fact that the patient continued to have multiple symptoms. Thank you very much for this referral. <ELECTRONICALLY SIGNED> By: Marcello Pablo MD 04/25/18 0835 0820 [id number] Pablo MD /nt
--- NOTE | 2018-04-25 08:35 | EEG ---
[address] [address] EEG STUDY REPORT Name: CURT CALLAWAY Sandi Room: [address] IN M.R.#: [id number] Admission: 04/16/18 Attend Phys: Ct Velasco MD Discharge: 04/22/18 Date of : 76 Report #: [id number] THIS REPORT FOR: //name// CC: Ronaldo Velasco DATE OF SERVICE: 04/18/2018 This patient is being admitted with overdose of unknown medications. Initially, it would appear that she overdosed on all her medications including both the anticonvulsants she has been on, which is Keppra as well as Vimpat. I saw this patient first time today and we looked at the bottles and the bottle does not have Keppra. The only thing it has is Vimpat, but they think the patient is on Keppra 2000 mg p.o. b.i.d. We were still trying to clarify, then she had seizure. EEG was done to further evaluate that. This patient's EEG was done by placing the electrodes by standard 10-20 system of electrode placement. Both referential and sequential montages were used for recording. Background activity in this patient's EEG is about 8 Hz and 30 microvolt. She does appear to have eye movement artifact, but the helicopter technician said she did not have that much artifact. She does appear to be showing seizure activity arising from frontal as well as intermittently temporal area. It does appear to be sporadic. IMPRESSION: This is an abnormal electroencephalogram, which will be consistent with a diagnosis of seizure disorder. We have started this patient back on Keppra. She overdosed on Vimpat and I cannot get the Vimpat level in this patient. She got a lot of benzodiazepine, which should be covering her for seizure, but looks like she did have a seizure this morning. I have put a call to her epileptologist, Dr. Schwartz, and I will try to talk to him about this patient and would like her to be transferred to his care if he will accept this patient. This is a complex patient and she does need a higher level of care, and we will see if they will accept her. Thank you very much for this referral. I will probably restart her on Vimpat since she is off benzo now, I would like to start her on Keppra, but the medicine is still confusing and I have asked the to go and get all the bottles of medications on her. She is also running temperature, which also needs to be addressed. <ELECTRONICALLY SIGNED> By: Marcello Pablo MD 04/25/18 0835 1441 [id number] Pablo MD /nt
--- NOTE | 2018-04-27 15:52 | CON ---
[address] [address] CONSULTATION Name: SHERINEVANGELINACURT M Room: [address] IN M.R.#: [id number] Admission: 04/16/18 Attend Phys: Ct Velasco MD Discharge: 04/22/18 Date of : 76 Report #: [id number] THIS REPORT FOR: //name// CC: Ronaldo Velasco DATE OF SERVICE: 04/17/2018 Nephrology Consultation REASON FOR CONSULTATION: Metabolic acidosis. HISTORY OF PRESENT ILLNESS: A 38-year-old female who was admitted with an intentional overdose as a part of a suicide attempt. She had a witnessed seizure lasting 7 minutes, was treated with Versed. She was intubated and was found to have significant metabolic acidosis with initial pH was 7.15. She was started on a bicarbonate drip. Her acidosis is improved and her bicarbonate drip has been discontinued. PAST MEDICAL HISTORY: History of seizures/epilepsy, history of cervical cancer, hysterectomy, history of prior suicide attempt, history of depression. MEDICATIONS: Reviewed. FAMILY HISTORY: Not pertinent in this 38-year-old female. SOCIAL HISTORY: Unknown if she smokes or drinks alcohol. PHYSICAL EXAMINATION: VITAL SIGNS: Blood pressure 106/60, pulse has been ranging mostly in the 90s, afebrile. GENERAL: Awake, in no distress, on the ventilator. EYES: Opens eyes. EARS: Externally normal. CARDIOVASCULAR: Regular rate. LUNGS: Diminished. ABDOMEN: Soft. LYMPHATICS: No pitting edema. NEUROLOGIC: Awake. LABORATORY DATA: White cell count 7.8, hemoglobin 9.5, platelets 186. Sodium 139, potassium 3.4, chloride 108, bicarbonate 26, BUN 5, creatinine 0.7, glucose 125, calcium 7.3, magnesium 1.5. ASSESSMENT: 1. Metabolic acidosis. Initial ABG showing pH of 7.15, bicarbonate of 14, and [facility] [address] [place] [address] CONSULTATION Name: SHERINCURT HUTCHINSON Sandi Room: [address]#: [id number] Admission: 04/16/18 Attend Phys: Ct Velasco MD Discharge: 04/22/18 Date of : 76 Report #: [id number] a pCO2 of 40s and there was evidence of lactic acidosis in the setting of hypotension. CK was okay. 2. Hypokalemia. 3. Hypomagnesemia. 4. Hypocalcemia. 5. Positive marijuana in the urine drug screen. 6. History of hypertension. 7. History of depression with suicide attempt and potential drug overdose. 8. History of seizures. PLAN: 1. Magnesium replaced. 2. Potassium has been replaced per protocol. 3. Calcium gluconate has been given that she has good urine output. 4. Metabolic acidosis is resolving. IV fluids have been changed. 5. No further recommendations. I will sign off. Please call with any questions. Thank you for requesting my opinion in the care and management of this patient. <ELECTRONICALLY SIGNED> By: Marissa Clark MD 04/27/18 1552 1333 [id number] Clark MD /nt
== END 2018-04-22 15:45 | DRG 871 ==
LOC: M.ERS 12:57 → M.ICU 13:49 → M.TBA-ER 13:49 → M.ICU 15:11 → M.2W 04-19 10:20 → M.ORTHSURG 04-21 13:21
PROVIDERS: Family Medicine; Internal Medicine Pulmonary Disease; ADMIT Internal Medicine
PROC: 5A1945Z Respiratory Ventilation, 24-96 Consecutive Hours (ICD-10-PCS; principal; 2018-04-16)
PROC: 0BH17EZ Insertion of Endotracheal Airway into Trachea, Via Natural or Artificial Opening (ICD-10-PCS; principal; 2018-04-16)
PROC: 02HV33Z Insertion of Infusion Device into Superior Vena Cava, Percutaneous Approach (ICD-10-PCS; principal; 2018-04-16)
DX: A41.9 Sepsis, unspecified organism (principal); J96.00 Acute respiratory failure, unspecified whether with hypoxia or hypercapnia; T50.992A Poisoning by other drugs, medicaments and biological substances, intentional self-harm, initial encounter; E87.6 Hypokalemia; G40.909 Epilepsy, unspecified, not intractable, without status epilepticus; E89.0 Postprocedural hypothyroidism; E83.42 Hypomagnesemia; E83.51 Hypocalcemia; F32.9 Major depressive disorder, single episode, unspecified; I10 Essential (primary) hypertension; Z90.710 Acquired absence of both cervix and uterus; Z87.891 Personal history of nicotine dependence; Z85.41 Personal history of malignant neoplasm of cervix uteri; Z79.2 Long term (current) use of antibiotics; Z79.899 Other long term (current) drug therapy; Y92.89 Other specified places as the place of occurrence of the external cause

== ENCOUNTER 2019-09-27 23:09 | Emergency (ER) | payer MEDICARE, MEDICAID ==
[~2019-09-27] VITALS: Ht 160 cm; Wt 42.5 kg
[~2019-09-27 23:09] MED LIST changes: +HYDROXYZINE HCL25 M1 PO; +IBUPROFEN 600600 M1 PO; +KEPPRA1000 MG PO; +LEXAPRO20 MG PO; +ONDANSETRON HCL4 M2 PO; +REQUIP1 MG PO; +ROPINIROLE HCL0.5 MG PO; +SCOPOLAMINE1 EACH TRANSDERM; +TEGRETOL200 MG PO; +TYLENOL325 MG PO; +VIMPAT200 MG PO; +ZANAFLEX2 MG PO; +ZONEGRAN100 MG PO
[2019-09-28] LABS: ABSOLUTE EOSINOPHILS 0.1 thou/uL (0.0-0.7); ABSOLUTE LYMPHOCYTES 2.2 thou/uL (0.8-5.3); ABSOLUTE MONOCYTES 0.7 thou/uL (0.0-1.2); ABSOLUTE NEUTROPHILS 3.6 thou/uL (1.6-8.1); BASOPHILS 0.7 %; EOSINOPHILS 1.2 %; HEMATOCRIT 42.1 % (37.0-47.0); HEMOGLOBIN 14.3 gm/dL (12.0-15.0); LYMPHOCYTES 32.9 %; MCV 99.9 fL (80.0-100.0); MONOCYTES 10.1 %; MPV 7.8 fl. (7.2-11.1); NUCLEATED RBCS 0 /100WBC; PLATELET COUNT* 289 thou/uL (150-400); POLYS 55.1 %; RBC 4.22 mil/uL (4.20-5.00); RDW-CV 13.4 % (10.5-14.5); WBC 6.5 thou/uL (4.0-11.0)
[2019-09-28 00:09] LABS: URINE BLOOD NEGATIVE (Negative); URINE CLARITY CLEAR; URINE COLOR YELLOW; URINE GLUCOSE-RANDOM NEGATIVE (Negative); URINE KETONES 1+ (Negative); URINE LEUKOCYTES-REFLEX NEGATIVE (Negative); URINE NITRITE-REFLEX NEGATIVE (Negative); URINE PROTEIN 2+ (Negative); URINE SPECIFIC GRAVITY 1.025 (1.005-1.030); URINE UROBILINOGEN 0.2 E.U./dl (0.2-1.0)
[2019-09-28 00:10] LABS: ICTOTEST (BILI CONFIRMATORY) Negative (Negative); URINE BILIRUBIN 1+ (Negative)
[2019-09-28 00:10] LABS: CALCIUM 8.8 mg/dL (8.5-10.1); CREATININE 1.1 mg/dL (0.6-1.3)
[2019-09-28 00:14] LABS: ALBUMIN 4.3 g/dL (3.4-5.0); MAGNESIUM 1.9 mg/dL (1.8-2.4); TOTAL BILIRUBIN 0.4 mg/dL (<0.1-1.0); TOTAL PROTEIN 7.1 g/dL (6.4-8.2)
[2019-09-28 00:15] LABS: ACETAMINOPHEN < 2 ug/mL (10-30); SALICYLATE 4.7 mg/dL (2.8-20.0)
[2019-09-28 00:31] LABS: AMP/METHAMP Negative (Negative); BARBITURATES Negative (Negative); BENZODIAZEPINES Negative (Negative); COCAINE Negative (Negative); METHADONE Negative (Negative); OPIATES Negative (Negative); PCP Negative (Negative); THC POSITIVE (Negative)
[2019-09-28 00:44] LABS: BACTERIA-REFLEX >30 Many /HPF (None Seen); CRYSTALS None Seen /LPF (None Seen); FINE GRANULAR CASTS 0-3 Few /LPF (None Seen); HYALINE CASTS 0-3 Few /LPF (None Seen); MUCUS 4-6 Moderate strn/LPF (None Seen); SQUAMOUS 4-10 Moderate /LPF (0-3); URINE RBC 3-10 Few /HPF (0-2); URINE WBC-REFLEX 0-5 Rare /HPF (0-5)
[2019-09-28 01:46] VITALS: BP 110/70
--- NOTE | 2019-09-28 13:42 | EKG ---
[place] [address] ELECTROCARDIOGRAM REPORT Name: CURT CALLAWAY Room: [facility]#: [id number] Admission: 09/27/19 Attend Phys: Discharge: 09/28/19 Date of : 76 Report #: [id number] THIS REPORT FOR: //name// [facility] ED Test Date: 2019-09-27 Test Time: 23:54:46 Pat Name: CURT CALLAWAY Department: Room: Gender: F Senior Contract Specialist: BLAIRE : 1980 Requested By: Bakari Vazquez Order Number: [id number] MD: Francisco Javier Mccarthy Measurements Intervals [place] Rate: 102 P: 43 TX: 152 QRS: 71 QRSD: 91 T: -57 QT: 327 QTc: 426 Interpretive Statements Sinus tachycardia RSR' in V1 or V2, right VCD or RVH Nonspecific T abnormalities, lateral leads Compared to ECG 04/18/2018 12:45:24 T-wave abnormality still present Electronically Signed On 09-28-2019 13:41:42 [employer]ING [employer]OWER by Francisco Javier Mccarthy [email or web address] <ELECTRONICALLY SIGNED> By: Francisco Javier Mccarthy MD, [facility] 09/28/19 1341 2354 [id number] Francisco Javier Mccarthy MD, [facility] /EPI
== END 2019-09-28 02:11 | disposition short-term general hospital (02) ==
LOC: M.ERS 23:09
PROVIDERS: Emergency Medicine
DX: G40.909 Epilepsy, unspecified, not intractable, without status epilepticus (principal); R11.2 Nausea with vomiting, unspecified; Z85.41 Personal history of malignant neoplasm of cervix uteri; Z90.710 Acquired absence of both cervix and uterus